=== PATIENT | male | born 1980 | race Hispanic/Latino ===

== ENCOUNTER 2023-01-03 11:46 | Emergency (ER) | payer OTHER ==
[~2023-01-03] VITALS: Ht 190.5 cm; Wt 99.3 kg
[2023-01-03 12:23] LABS: BASOPHILS % (AUTO) 0.4 % (0.0-5.0); EOSINOPHILS % (AUTO) 6.4 % (0.0-8.0); HEMATOCRIT 33.5 % (42-54); LYMPHOCYTES % (AUTO) 29.6 % (21.0-51.0); MEAN CORPUSCULAR HEMOGLOBIN 30.9 pg (27.0-33.0); MEAN CORPUSCULAR HGB CONC 34.3 g/dL (32.0-36.0); MEAN CORPUSCULAR VOLUME 90.1 fL (79-99); MONOCYTES % (AUTO) 8.4 % (3.0-13.0); PLATELET COUNT (AUTO) 101 K/uL (130-400); RED BLOOD CELL COUNT(AUTO) 3.72 MIL/uL (4.50-6.20); RED CELL DISTRIBUTION WIDTH 13.3 % (11.0-15.5); WHITE BLOOD COUNT (AUTO) 5.1 K/uL (4.8-10.8)
[2023-01-03 12:36] LABS: CREATININE 0.7 mg/dL (0.5-1.5); POTASSIUM 3.9 mmol/L (3.5-5.1)
[2023-01-03 12:38] LABS: INR 1.19 (0.85-1.15); PROTHROMBIN TIME 13.6 SEC (9.6-11.6)
[2023-01-03 12:39] LABS: PARTIAL THROMBOPLASTIN TIME 35.4 SEC (26.3-35.5)
[2023-01-03 12:40] LABS: ALBUMIN 3.5 g/dL (3.5-5.0); TOTAL PROTEIN, SERUM 7.9 g/dL (6.0-8.3)
[2023-01-03 12:45] LABS: B-TYPE NATRIURETIC PEPTIDE 93 pg/mL (0-100)
[2023-01-03 15:32] LABS: APPEARANCE,URINE CLEAR (CLEAR); BILIRUBIN,URINE NEGATIVE (NEGATIVE); COLOR,URINE YELLOW (YELLOW); GLUCOSE, URINE (UA) NEGATIVE (NEGATIVE); KETONES,URINE NEGATIVE (NEGATIVE); LEUKOCYTE ESTERASE ,URINE NEGATIVE Leu/uL (NEGATIVE); NITRATE,URINE NEGATIVE (NEGATIVE); OCCULT BLOOD,URINE NEGATIVE (NEGATIVE); PH,URINE 5.5 (5.0-8.0); PROTEIN,URINE NEGATIVE (NEGATIVE); UROBILINOGEN,URINE 0.2 mg/dL (0.2-1.0)
[2023-01-03] MEDS ORDERED: COMP1EAC MC (15:32)
[2023-01-03] MEDS ORDERED: CEPH500B PO (15:32)
[2023-01-03 16:04] VITALS: BP 103/63
== END 2023-01-03 16:04 | disposition home or self-care (01) ==
LOC: EDH 11:46
DX: R60.0 Localized edema (principal)
CPT/HCPCS: 36415; 71045; 80053; 81003; 83735; 83880; 84443; 84484; 85025; 85378; 85610; 85730; 93005; 93970